=== PATIENT | male | born 1935 | race Caucasian/White ===

== ENCOUNTER 2021-01-02 16:49 | Emergency (ER) | payer MEDICARE, BC ==
[~2021-01-02] VITALS: Ht 170.2 cm; Wt 88.6 kg
[~2021-01-02 16:49] MED LIST: ASPI-12 PO; NO HOME MEDS
--- NOTE | 2021-01-02 17:12 | NUR ---
chris daughter [phone]
[2021-01-02] MEDS ORDERED: normal saline 1000ml 1,000 ML IV ONE (17:30)
[2021-01-02 18:03] LABS: WHITE BLOOD COUNT 9.7 X10'3 (4.5-11.0)
[2021-01-02 18:05] LABS: HEMATOCRIT 37.9 % (42.0-52.0); HEMOGLOBIN 13.1 g/dl (14.0-17.9); MEAN CORPUSCULAR HEMOGLOBIN 33.9 PG (27.0-31.0); MEAN CORPUSCULAR HGB CONC 34.6 g/dL (33.0-36.5); MEAN CORPUSCULAR VOLUME 97.7 FL (78-98); MEAN PLATELET VOLUME 8.8 FL (7.4-10.4); PLATELET COUNT 116 X10'3 (140-440); RED BLOOD COUNT 3.88 X10'6 (4.70-6.10); RED CELL DISTRIBUTION WIDTH 13.9 % (11.5-14.5)
[2021-01-02 18:24] LABS: ALANINE AMINOTRANSFERASE 33 U/L (12-78); ALBUMIN 3.5 G/DL (3.4-5.0); ALBUMIN/GLOBULIN RATIO 0.7 (1.1-1.5); ALKALINE PHOSPHATASE 65 IU/L (46-116); ANION GAP 14 (8-16); ASPARTATE AMINO TRANSFERASE 35 U/L (10-37); BILIRUBIN,TOTAL 0.7 MG/DL (0.1-1.0); BLOOD UREA NITROGEN 18 MG/DL (7-18); BUN/CREATININE RATIO 17.6 (5.4-32.0); C-REACTIVE PROTEIN 13.24 MG/DL (0.0-0.5); CALCIUM 8.7 MG/DL (8.5-10.1); CHLORIDE 101 MMOL/L (99-107); CREATININE 1.02 MG/DL (0.60-1.10); GLUCOSE 99 MG/DL (70-104); MAGNESIUM 1.9 MG/DL (1.5-2.4); POTASSIUM 3.8 MMOL/L (3.5-5.1); SODIUM 136 MMOL/L (135-145); TOTAL CARBON DIOXIDE 21.5 MMOL/L (24-32); TOTAL PROTEIN 8.2 G/DL (6.4-8.2); eGFR 69 ML/MIN
[2021-01-02 19:13] LABS: CLARITY,URINE CLEAR (Clear); COLOR,URINE YELLOW (Yellow); GLUCOSE, URINE NEGATIVE (Neg); KETONES,URINE 40 mg/dl (Neg); LEUKOCYTE ESTERASE ,URINE MODERATE (Neg); NITRITES, URINE POSITIVE (Neg); OCCULT BLOOD,URINE LARGE (Neg); PROTEIN,URINE 100 mg/dl (Neg); UROBILINOGEN,URINE 0.2 E.U/dL (0.2-1.0)
[2021-01-02 19:17] LABS: UA COLLECTION TYPE NON-SPECIFIED
[2021-01-02 19:22] LABS: SQUAMOUS EPITHELIAL CELL,UR FEW /LPF (FEW); WBC,URINE 50-100 /HPF (0-4)
[2021-01-02 19:23] LABS: BACTERIA,URINE 4+ /HPF (Neg); FINE GRANULAR CAST 0-3 /LPF (NEGATIVE); WBC CLUMPS,URINE MODERATE /HPF (NEGATIVE)
[2021-01-02] MEDS ORDERED: CefTRIAXone/D5W-Rocephin 1gm 50 ML IV ONE (19:30)
[2021-01-02] MEDS ORDERED: SULF1TAB49 PO (19:33)
[2021-01-02 19:46] VITALS: BP 132/81
[2021-01-02 21:35] LABS: TOTAL CELLS COUNTED 100
[2021-01-02 21:36] LABS: PLATELET ESTIMATE DECREASED
[2021-01-02 21:37] LABS: LARGE PLATELETS FEW
[2021-01-02 21:39] LABS: GIANT PLATELET FEW; POLYCHROMASIA 1+
--- NOTE | 2021-01-04 16:54 | NUR ---
Lab called, gram - rods in two culture bottles. Spoke with Dr Bailey who states patient needs to return. Called patient and left message for patient to return call.
--- NOTE | 2021-01-04 17:06 | NUR ---
Patient returned call. States feeling better, but will be in first thing tomorrow morning.
== END 2021-01-02 20:03 | disposition home or self-care (01) ==
LOC: ER 16:50
DX: N39.0 Urinary tract infection, site not specified (principal); R53.81 Other malaise; R50.9 Fever, unspecified; R53.1 Weakness; Z20.822 Contact with and (suspected) exposure to COVID-19; Z79.82 Long term (current) use of aspirin; Z79.2 Long term (current) use of antibiotics
CPT/HCPCS: 36415; 71045; 80053; 81001; 83605; 83735; 84145; 85007; 85025; 85651; 86140; 87040; 87077; 87088; 87186; 87635; 93005; 96361; 96365; 99285; J0696; J7030

== ENCOUNTER 2021-01-05 10:17 | Emergency (ER) | payer MEDICARE, BC ==
[~2021-01-05] VITALS: Ht 170.2 cm; Wt 90.9 kg
[~2021-01-05 10:17] MED LIST changes: +SULF1TAB49 PO
[2021-01-05 10:20] VITALS: BP 134/64
[2021-01-05] MEDS ORDERED: CIPR-230 PO (11:52)
== END 2021-01-05 12:03 | disposition home or self-care (01) ==
LOC: ER 10:17
DX: A41.9 Sepsis, unspecified organism (principal); Z79.82 Long term (current) use of aspirin; Z79.899 Other long term (current) drug therapy
CPT/HCPCS: 99283

== ENCOUNTER 2021-09-27 20:28 | Emergency (ER) | payer MEDICARE, BC ==
[~2021-09-27] VITALS: Ht 167.6 cm; Wt 197.0 kg
[~2021-09-27 20:28] MED LIST changes: -SULF1TAB49 PO
[2021-09-27 20:50] VITALS: BP 129/107
[2021-09-27] MEDS ORDERED: ondansetron 4mg rapidly disintigrating tab PO ONE (21:20)
[2021-09-27] MEDS ORDERED: ONDA4TAB6 PO (21:59)
[2021-09-27] MEDS ORDERED: AZIT-83 PO (21:59)
[2021-09-27] MEDS ORDERED: AZIT250T27 PO (22:05)
[2021-09-27] MEDS ORDERED: PROC-8 PO (22:05)
== END 2021-09-27 22:14 | disposition home or self-care (01) ==
LOC: ER 20:29
DX: B34.9 Viral infection, unspecified (principal); Z79.899 Other long term (current) drug therapy; Z20.822 Contact with and (suspected) exposure to COVID-19
CPT/HCPCS: 71045; 87635; 93005; 99285; C9803